=== PATIENT | male | born 1960 | race Caucasian/White ===

== ENCOUNTER → 2019-12-31 | Outpatient (CLI) | payer MEDICARE, MEDICAID ==
[~2019-12-31] MED LIST: BACTRIM-DS1 EA ORAL; BUPROPION XL150 MG ORAL; MIRTAZAPINE7.5 MG ORAL; QUETIAPINE FUMA50 MG ORAL; STRIBILD TABLE1 EACH PO
--- NOTE | 2019-12-31 16:34 | Diagnostic Imaging Report ---
Indication: Reason For Exam: COUGH Technique: Single AP view of the chest. Comparison: None. Findings: The cardiomediastinal silhouette is within normal limits. No airspace consolidation. There is diffuse peribronchial thickening. No pleural effusion or pneumothorax. No acute osseous abnormality. IMPRESSION: Diffuse peribronchial thickening the absence of airspace consolidation, which is nonspecific but can be associated with infectious/fundus or airways disease.
== END | disposition home or self-care (01) ==
LOC: RAD 14:45
DX: R05 Cough (principal); B20 Human immunodeficiency virus [HIV] disease; R06.02 Shortness of breath
CPT/HCPCS: 71046